=== PATIENT | female | born 1960 | race Caucasian/White ===

== ENCOUNTER 2020-07-08 12:38 | Emergency (ER) | payer OTHER ==
[~2020-07-08] VITALS: Ht 149.9 cm; Wt 56.2 kg
[2020-07-08] MEDS ORDERED: LOPRESSOR HCT1 EACH (13:54)
[2020-07-08] MEDS ORDERED: TOPAMAX50 MG PO (13:55)
[2020-07-08] MEDS ORDERED: ADULT LOW DOSE81 M1 PO (13:55)
[2020-07-08] MEDS ORDERED: DECADRON6 MG PO (18:44)
== END 2020-07-08 19:02 | disposition home or self-care (01) ==
LOC: ER 12:38
DX: U07.1 COVID-19 (principal)

== ENCOUNTER 2020-07-12 09:53 | Emergency (ER) | payer OTHER ==
[~2020-07-12] VITALS: Ht 152.4 cm; Wt 56.7 kg
[~2020-07-12 09:53] MED LIST: ADULT LOW DOSE81 M1 PO; DECADRON6 MG PO; LOPRESSOR HCT1 EACH; TOPAMAX50 MG PO
== END 2020-07-12 14:03 | disposition home or self-care (01) ==
LOC: ER 09:53
DX: R06.02 Shortness of breath (principal); U07.1 COVID-19

== ENCOUNTER 2023-11-18 16:53 | Emergency (ER) | payer OTHER ==
[~2023-11-18] VITALS: Ht 149.9 cm; Wt 58.1 kg
[2023-11-18] MEDS ORDERED: SUMATRIPTAN SUCCINATE 6 MG/0.5 ML VIAL SUBCUTANEO STA (21:05)
[2023-11-18] MEDS ORDERED: SUMATRIPTAN SUCCINATE 6 MG/0.5 ML VIAL SUBCUTANEO ONE (21:21)
== END 2023-11-18 22:32 | disposition home or self-care (01) ==
LOC: ER 16:54
DX: R51.9 Headache, unspecified (principal); I10 Essential (primary) hypertension